=== PATIENT | female | born 1970 | race African-American/Black ===

== ENCOUNTER → 2020-02-09 | Outpatient (CLI) | payer MEDICAID ==
[~2020-02-09] MED LIST: FLUT15.813 BOTHNSTRLS; LACT1CAP68 PO; LORA10TA7 PO; METO-293 PO; NAPR-681 PO; PANT40TA4 PO
== END | disposition home or self-care (01) ==
LOC: LAB 08:27
PROVIDERS: ATTEND Obstetrics & Gynecology
DX: Z01.812 Encounter for preprocedural laboratory examination (principal); Z20.828 Contact with and (suspected) exposure to other viral communicable diseases
CPT/HCPCS: C9803; U0003

== ENCOUNTER 2024-03-17 17:40 | Emergency (ER) | payer SELFPAY ==
[~2024-03-17] VITALS: Ht 162.6 cm; Wt 83.0 kg
[~2024-03-17 17:40] MED LIST changes: -FLUT15.813 BOTHNSTRLS; -PANT40TA4 PO; +PANT40TA51 PO; +[UNRECOGNIZED DRUG - CODE] BOTHNSTRLS
[2024-03-17 17:45] VITALS: O2SAT 100
[2024-03-17] MEDS ORDERED: AMLO5TAB88 MT (18:10)
[2024-03-17 18:20] VITALS: BP 155/94; PULSE 78; RESP 16; TEMP 36.50292; O2SAT 100
== END 2024-03-17 18:24 | disposition home or self-care (01) ==
LOC: ER 17:40
DX: I10 Essential (primary) hypertension (principal); Z91.030 Bee allergy status; Z79.899 Other long term (current) drug therapy
CPT/HCPCS: 99283